=== PATIENT | male | born 1985 | race Caucasian/White ===

== ENCOUNTER → 2023-05-14 13:47 | Outpatient (CLI) | payer OTHER, SELFPAY ==
--- NOTE | 2023-05-14 13:50 | DI.MRI.S_ITS ---
PROCEDURE: MR LUMBAR SPINE WO CON INDICATIONS: SPINAL STENOSIS/EVAL NEURO STRUCTURES TECHNIQUE: Noncontrast sagittal T1 spin echo and T2 fast echo, sagittal STIR, and T2 fast spin echo through the lumbar spine. In cases with scoliosis, additional coronal T2 fast spin echo may be performed. COMPARISON: [facility] Outside Film, MR, MR LUMBAR SPINE WITHOUT CONTRAST, 10/28/2019, 10:55. [facility] [place], CR, XR LUMBAR SPINE 2 OR 3 VIEWS, 04/15/2023, 11:05. FINDINGS: Image quality: Diagnostic Alignment: There is mild straightening of normal lumbar lordosis. No spondylolisthesis. Marrow: No acute fracture. Mild scattered Modic changes Cord: Terminates in normal position. Unremarkable appearance of the cauda equina nerve roots. Soft tissues: No paravertebral mass or fluid collection. Specific levels: L1-L2: Mild facet arthropathy. Small diffuse disc bulge. No stenosis. L2-L3: Jkhh-mo-qivyhtje diffuse disc bulge and facet arthropathy. Mild central narrowing affecting both subarticular recesses. Mild bilateral neural foraminal narrowing. Ligamentum hypertrophy. L3-L4: Moderate facet arthropathy and moderate diffuse disc bulge. Right greater than left vwdn-hn-homletuu central narrowing affecting the subarticular recesses. Moderate right and mild left neural foraminal narrowing. Ligamentum hypertrophy. L4-L5: Moderate diffuse disc bulge and moderate facet arthropathy. There is ligamentum flavum hypertrophy. Moderate right subarticular and mild left subarticular recess narrowing. Mild overall central narrowing. Moderate right and oqxd-da-xrfnnthl left neural foraminal narrowing. L5-S1: Large diffuse disc bulge and facet arthropathy. Ligamentum hypertrophy. Left greater than right lqmw-re-jxyorsyx central narrowing affecting the subarticular recesses. Moderate to severe right and moderate left neural foraminal narrowing IMPRESSION: Spondylotic changes as described above, with areas of both subarticular and neural foraminal stenosis. Findings are slightly worse compared to 2019. Dictated by: Mikel Dunn M.D. on 05/14/2023 at 15:29 Approved by: Mikel Dunn M.D. on 05/14/2023 at 15:34
== END ==
LOC: MRI 13:50
PROVIDERS: Referring Provider Orthopaedic Surgery Orthopaedic Surgery of the Spine; Visit Provider Orthopaedic Surgery Orthopaedic Surgery of the Spine
DX: M48.061 Spinal stenosis, lumbar region without neurogenic claudication (principal); M48.07 Spinal stenosis, lumbosacral region; M47.816 Spondylosis without myelopathy or radiculopathy, lumbar region; M47.817 Spondylosis without myelopathy or radiculopathy, lumbosacral region
CPT/HCPCS: 72148

== ENCOUNTER → 2023-11-18 09:17 | Outpatient (CLI) | payer OTHER, SELFPAY ==
--- NOTE | 2023-11-18 09:18 | DI.MRI.S_ITS ---
PROCEDURE: MR SHOULDER LT WO CON INDICATIONS: Pain in left shoulder TECHNIQUE: Noncontrast oblique coronal T2 fast spin echo with fat saturation, oblique sagittal T1 spin echo and T2 fast spin echo with fat saturation, axial T1 spin echo and T2 fast spin echo with fat saturation through the shoulder. COMPARISON: [facility] Outside Film, CR, XR SHOULDER 2+ VIEWS LEFT, 03/19/2023, 10:37. FINDINGS: Image quality: Excellent. Rotator cuff: Low-grade articular and bursal surface partial thickness tear involving distal supraspinatus at its insertion on the humeral head is seen extending to musculotendinous junction. Distal infraspinatus and subscapularis tendinosis is seen. No full-thickness rotator cuff tendon rupture. Sagittal images demonstrate no rotator cuff muscle atrophy. Bones and bursae: No fracture or dislocation. Nonspecific edema involving greater tuberosity of humeral head near rotator cuff tendon insertion. Mild acromioclavicular joint osteoarthritic changes are noted with joint space narrowing, subchondral sclerosis and downward osteophyte formation depressing the musculotendinous junction of supraspinatus. Type 1 acromion, without an os acromiale. Trace amount of subacromial subdeltoid bursal fluid is seen. No loose bodies. Capsule and soft tissues: Labrum is grossly intact. The long head of the biceps tendon appears thickened intra-articularly. The rotator interval appears normal, without fibrosis. The coracohumeral ligament is normal in thickness. IMPRESSION: 1. Suggestion of tendinosis involving proximal long head of biceps. 2. Low-grade articular and bursal surface partial thickness tear involving distal supraspinatus extending to musculotendinous junction. Distal infraspinatus and subscapularis tendinosis. No full-thickness rotator cuff tendon rupture. 3. Mild acromioclavicular joint osteoarthritis. Mild contusion/avulsion involving greater tuberosity of humeral head near rotator cuff tendon insertion. No fracture or dislocation. Small amount of subacromial subdeltoid bursal fluid, no loose bodies. 4. No evidence of focal labral tear. Dictated by: Feng Watson M.D. on 11/18/2023 at 11:07 Approved by: Feng Watson M.D. on 11/18/2023 at 11:10
== END ==
PROVIDERS: Referring Provider Orthopaedic Surgery; Visit Provider Orthopaedic Surgery
DX: M75.112 Incomplete rotator cuff tear or rupture of left shoulder, not specified as traumatic (principal); M19.012 Primary osteoarthritis, left shoulder; M25.512 Pain in left shoulder
CPT/HCPCS: 73221

== ENCOUNTER 2023-11-24 08:38 | Day surgery (SDC) | payer OTHER, SELFPAY ==
--- NOTE | 2023-11-24 | PATH_ITS ---
[facility] Accession Number: [id number] No. of containers..02 Tissue . 01 Material submitted: . PART A: colon - RANDOM COLON PART B: rectum - RECTUM . 01 Diagnosis: A. RANDOM COLON, BIOPSY: Colonic mucosa with no diagnostic abnormality. Negative for active, chronic, and microscopic colitis. Negative for dysplasia and malignancy. . B. RECTUM, BIOPSY: Colonic mucosa with no diagnostic abnormality. Negative for active, chronic, and microscopic colitis. Negative for dysplasia and malignancy. . MRV 11/26/2023 1747 Local . 01 Electronically signed: . Isidro Noe MD, PhD, Pathologist NPI- [id number] . 01 Gross description: . Part A: RANDOM COLON: Received in formalin are 2 fragment(s) of chaparro, soft tissue measuring 0.1 x 0.1 x 0.1 cm to 0.2 x 0.2 x 0.2 cm submitted entirely in 1 cassette(s) Part B: RECTUM: Received in formalin are 2 fragment(s) of chaparro, soft tissue measuring 0.2 x 0.1 x 0.1 cm to 0.3 x 0.3 x 0.2 cm submitted entirely in 1 cassette(s) /KERI 11/25/2023 0058 Local . 01 Pathologist provided ICD-10: R19.4, Z87.19 . 01 CPT . 013120, 744386 Specimen Comment: A courtesy copy of this report has been sent to [phone] Performed at: [address] [address], [place], [place] [id number] MD Shaq Pavon MD Phone: [phone]
[2023-11-24 09:07] VITALS: BP 133/93; PULSE 107; RESP 16; TEMP 36.5; O2SAT 98
[2023-11-24] MEDS: LACTATED RINGERS 1,000 ML 42 ML IV (09:12)
--- NOTE | 2023-11-24 09:38 | PM.HP.1 ---
History of Present Illness History of Present Illness Date Patient Seen: 11/24/23 Time Patient Seen: 09:38 Chief complaint: Colonoscopy Narrative: 37-year-old here for colonoscopy. I reviewed the note that was recently created by Guille Haque in GI clinic. No changes. [facility]LY [facility] Social History Smoking Status: Never smoker alcohol intake: current Meds Home Medications and Allergies Home Medications Medication Instructions Recorded Confirmed Type carboxymethylcellulose sodium 0.5 drp EYE-BOTH 11/24/23 History % eye drops cetirizine 10 mg tablet 10 mg PO DAILY 11/24/23 11/24/23 History fluticasone propionate 50 1 spray intranasal BID 11/24/23 11/24/23 History mcg/actuation nasal spray,suspension meloxicam 15 mg tablet 15 mg PO DAILY 11/24/23 11/24/23 History sildenafil 50 mg tablet PO 11/24/23 History tretinoin 0.025 % topical cream applic topical 11/24/23 History Allergies Allergy/AdvReac Type Severity Reaction Status Date / Time No Known Drug Allergies Allergy Verified 11/24/23 08:55 Review of Systems Review of Systems ROS: Yes All systems reviewed with the patient and are negative except as otherwise documented Exam Vital Signs (past 8 hours): - 11/24/23 09:07 Temperature 97.7 F Pulse Rate 107 H Respiratory Rate 16 Blood Pressure 133/93 H Pulse Oximetry 98 Oxygen Delivery Method Room Air Oxygen Delivery Method Room Air Const General: cooperative HENMT Head: normal to inspection Eyes General: appearance normal, both eyes and all related structures Neck Neck: normal visual inspection Chest Chest: normal inspection of the chest Resp Effort & Inspection: normal respiratory effort Cardio Rate: regular rate GI Inspection: normal to inspection Skin General: no rashes or lesions noted Neuro General: patient alert and patient awake Extrem General: normal to inspection and no pedal edema Psych Appearance: grossly normal Assessment & Plan Assessment & Plan narrative: 37-year-old male with altered bowel habits including diarrhea intermittent blood and mucus per rectum. Repeat colonoscopy is pursued today. Time-Based Coding :: [TOTAL MINUTES] spent with patient and on the chart (including review of chart, obtaining history, exam, reviewing outside data, placing orders, documenting exam and treatment plan, and counseling patient) on [DATE].
--- NOTE | 2023-11-24 09:39 | PM.PREOP ---
Pre-operative Note Interval Note History & Physical reviewed/Exam performed by Physician: Yes Changes to H&P: No ASA Class (for procedural sedation): II
--- NOTE | 2023-11-24 10:09 | P.OP.COLON_ITS ---
Operative Date/Time/Diagnoses Date of procedure: 11/24/23 Time of procedure: 10:09 Pre-op diagnosis: Diarrhea intermittent rectal bleeding Post-op diagnosis: same Procedure & Clinicians Study performed: Colonoscopy with biopsies Same procedure as scheduled: Yes Indications: Diarrhea rectal bleeding Surgeon: Keon Gastelum Procedure Notes SCOAP/Timeout: Done Procedure in detail: After the risks and benefits were explained, written and verbal informed consent was obtained. The patient was brought into the procedure room and placed into the left lateral decubitus position. Please see anesthesia note for sedation de tails. Digital rectal examination was accomplished. The scope was introduced into the patient and advanced under direct visualization to the cecum as identified by the appendiceal orifice and ileocecal valve. The scope was slowly withdrawn to carefully examine the mucosa for any defects or lesions. Comprehensive imaging was accomplished throughout the rectum including the dentate line. The colon was decompressed, the scope was then removed from the patient who tolerated the procedure well. Adult colonoscope Bowel prep adequate Scope withdrawal time: 11 minutes Sedation minutes: 22 Complications: none Impression: There was no evidence of proctitis. No evidence of colitis throughout. Visually this was a normal-appearing colon. I took biopsies from the colon at random to exclude microscopic colitis. I took a separate set from the rectum for histologic contrast. The terminal ileum appeared visually normal. Endoscopic diagnosis Visually normal colonoscopy/terminal ileoscopy Post-procedure Plan for aftercare: 1. Await histology. 2. Continue fiber supplementation with Citrucel as discussed in the clinic. 3. Follow up in GI clinic Disposition: PACU
[2023-11-24 10:11] VITALS: BP 104/75; PULSE 93; RESP 15; TEMP 37.2; O2SAT 97
[2023-11-24 10:16] VITALS: BP 110/79; PULSE 88; RESP 12; TEMP 37.1; O2SAT 97
[2023-11-24 10:26] VITALS: BP 119/78; PULSE 75; RESP 14; TEMP 37.1; O2SAT 99
== END 2023-11-24 10:36 | disposition home or self-care (01) ==
PROVIDERS: Referring Provider Internal Medicine Gastroenterology; Visit Provider Internal Medicine Gastroenterology
PROC: 0DJD8ZZ Inspection of Lower Intestinal Tract, Via Natural or Artificial Opening Endoscopic (ICD-10-PCS; CPT 45378; principal; 2023-11-24 09:30)
DX: K62.5 Hemorrhage of anus and rectum (principal); R19.7 Diarrhea, unspecified
CPT/HCPCS: 45380; J2405; J2704

== ENCOUNTER → 2023-12-02 13:47 | Outpatient (CLI) | payer OTHER, SELFPAY ==
--- NOTE | 2023-12-02 | DI.ECHO.S_ITS ---
[place] [facility] : : [address] : : [place] : : [address] : : Phone: [phone] Echocardiogram Report + + :Name: DAKSHA ORTIZ Study Date: 12/02/2023 Height: 69 in : :[facility] ReadingLocation: Weight: 200 lb : : Gender: Male BSA: 2.1 m2 : :: 1985 Age: 37 yrs BP: 148/97 mmHg: :Reason For Study: ENCOUNTER FOR GENERAL ADULT MEDICAL : :EXAMINATION : :Ordering Physician: JEFFERY MEJÍA : :Rodrigo Alvarez Performed By: Cass Varghese : :Referring: JEFFERY MEJÍA D.O. : + + Interpretation Summary The ejection fraction is estimated to be 60-65%. The right ventricle is normal in size and function. Diastolic parameters suggest probable normal left ventricular diastolic function and normal filling pressures. No significant valvular abnormality. Procedure: A two-dimensional transthoracic echocardiogram with color flow and Doppler was performed. The study quality was technically adequate. There is no prior echocardiogram noted for this patient. The patient was in sinus tachycardia with heart rates between 104-112 bpm during the exam. Left Ventricle: The left ventricle is normal in size and wall thickness. The ejection fraction is estimated to be 60-65%. There are no obvious focal wall motion abnormalities noted but poor endocardial definition reduces the sensitivity for the detection of such. Diastolic parameters suggest probable normal left ventricular diastolic function and normal filling pressures. Right Ventricle: The right ventricle is normal in size and function. Atria: The left atrial size is normal. Right atrial size is normal. There is no Doppler evidence for an interatrial shunt. Mitral Valve: The mitral valve is normal in structure and function. There is trace mitral regurgitation. Aortic Valve: The aortic valve is not well visualized. The aortic valve opens well. There is no aortic valve stenosis. No aortic regurgitation is present. Tricuspid Valve: The tricuspid valve is normal in structure and function. There is trace tricuspid regurgitation. Pulmonic Valve: The pulmonic valve leaflets are thin and pliable; valve motion is normal. There is no pulmonic valvular regurgitation. Great Vessels: The aortic root is normal size. The dimensions of the ascending aorta are normal. The IVC is of normal diameter and collapses greater than 50% with a sniff. This suggests a low right atrial pressure of 3 mm Hg. Pericardium/ Pleura There is no pericardial effusion. There is no pleural effusion. MMode/2D Measurements & Calculations LVIDd: 5.1 cm LVOT diam: 2.1 cm LVIDs: 3.4 cm Ao root diam: 2.8 cm FS: 33.9 % asc Aorta Diam: 3.4 cm IVSd: 0.72 cm Ao Arch Diam (Prox Trans): 2.8 cm LVPWd: 0.80 cm LV costa. diameter/BSA (cm/m^2): 2.5 LV sys. diameter/BSA (cm/m^2): 1.6 LA A2 area: 21.0 cm2 RA long axis: 4.1 cm LA A4 area: 16.1 cm2 RA area: 12.8 cm2 LA length (vol): 5.0 cm RA vol: 34.1 ml LA vol: 57.4 ml RA : 16.5 ml/m2 LA vol index: 27.8 ml/m2 IVC diam: 1.4 cm RVD1 (basal): 3.6 cm RVD2 (mid): 2.9 cm TAPSE: 2.3 cm Doppler Measurements & Calculations Ao V2 max: 162.8 cm/sec LVOT Max Billy: 104.3 cm/sec Ao V2 mean: 115.9 cm/sec LV V1 max P.4 mmHg Ao max P.6 mmHg LV V1 VTI: 19.7 cm Ao mean P.8 mmHg MARIELA(I,D): 2.4 cm2 Ao V2 VTI: 27.8 cm MARIELA(V,D): 2.2 cm2 sev ratio: 0.71 MARIELA indexed to BSA (cm^2/m^2): 1.2 MV E max billy: 67.9 cm/sec PA V2 max: 111.8 cm/sec MV A max billy: 71.6 cm/sec PA V2 mean: 82.9 cm/sec MV E/A: 0.95 PA mean P.0 mmHg Med Peak E' Billy: 17.0 cm/sec PA pr(Accel): 27.6 mmHg E/E' med: 4.0 Lat Peak E' Billy: 18.6 cm/sec E/E' lat: 3.7 E/e' average: 3.8 MV dec time: 0.15 sec [facility] 67.1 ml Reading Physician:MEAGAN
== END ==
LOC: ECHO 13:48
PROVIDERS: Referring Provider Family Medicine; Visit Provider Family Medicine
DX: Z00.00 Encounter for general adult medical examination without abnormal findings (principal)
CPT/HCPCS: 93306